=== PATIENT | male | born 1965 | race Hispanic/Latino ===

== ENCOUNTER 2022-12-25 18:05 | Emergency (ER) | payer MEDICAID ==
[~2022-12-25] VITALS: Ht 165.1 cm; Wt 57.2 kg
[2022-12-25] MEDS ORDERED: LORAZEPAM 2 MG/ML 1 ML VIAL IVP ONE (20:00)
[2022-12-25] MEDS ORDERED: LACTATED RINGERS 1000ML 1,000 ML IV ONE (20:00)
[2022-12-25] MEDS ORDERED: METOCLOPRAMIDE 10 MG/2 ML VIAL IVP ONE (20:00)
[2022-12-25] MEDS ORDERED: FAMOTIDINE 20MG VIAL IV ONE (20:00)
[2022-12-25 20:34] LABS: BASOPHILS # (AUTO) 0.05 K/uL (0.00-0.20); BASOPHILS % (AUTO) 0.4 % (0.0-5.0); EOSINOPHILS # (AUTO) 0.18 K/uL (0.00-0.70); EOSINOPHILS % (AUTO) 1.6 % (0.0-8.0); HEMATOCRIT 38.1 % (42-54); IMMATURE GRANULOCYTE ABSOLUTE 0.05 K/uL (0-1); LYMPHOCYTES # (AUTO) 3.2 K/uL (1.0-4.8); LYMPHOCYTES % (AUTO) 27.9 % (21.0-51.0); MEAN CORPUSCULAR HEMOGLOBIN 32.7 pg (27.0-33.0); MEAN CORPUSCULAR HGB CONC 33.6 g/dL (32.0-36.0); MEAN CORPUSCULAR VOLUME 97.2 fL (79-99); MONOCYTES # (AUTO) 0.9 K/uL (0.1-1.0); MONOCYTES % (AUTO) 7.9 % (3.0-13.0); NEUTROPHILS % (AUTO) 61.8 % (40.0-77.0); PLATELET COUNT (AUTO) 252 K/uL (130-400); RED BLOOD CELL COUNT(AUTO) 3.92 MIL/uL (4.50-6.20); RED CELL DISTRIBUTION WIDTH 13.2 % (11.0-15.5); WHITE BLOOD COUNT (AUTO) 11.3 K/uL (4.8-10.8)
[2022-12-25 20:44] LABS: CREATININE 1.1 mg/dL (0.5-1.5); POTASSIUM 4.5 mmol/L (3.5-5.1)
[2022-12-25 20:56] LABS: ALBUMIN 3.3 g/dL (3.5-5.0); BILIRUBIN,TOTAL 0.1 mg/dL (0.2-1.0); TOTAL PROTEIN, SERUM 6.6 g/dL (6.0-8.3)
[2022-12-25 22:48] VITALS: BP 131/88; PULSE 75; RESP 16; O2SAT 100
[2022-12-25] MEDS ORDERED: LACTULOSE 20 GM/30 ML UDCUP PO ONE (23:30)
[2022-12-26] LABS: APPEARANCE,URINE CLEAR (CLEAR); BILIRUBIN,URINE NEGATIVE (NEGATIVE); COLOR,URINE COLORLESS (YELLOW); GLUCOSE, URINE (UA) NEGATIVE (NEGATIVE); KETONES,URINE NEGATIVE (NEGATIVE); LEUKOCYTE ESTERASE ,URINE NEGATIVE Leu/uL (NEGATIVE); NITRATE,URINE NEGATIVE (NEGATIVE); OCCULT BLOOD,URINE NEGATIVE (NEGATIVE); PH,URINE 6.5 (5.0-8.0); PROTEIN,URINE NEGATIVE (NEGATIVE); UROBILINOGEN,URINE 0.2 mg/dL (0.2-1.0)
[2022-12-26 00:05] LABS: AMPHET/METH SCREEN,URINE NEGATIVE (NEGATIVE); BARBITURATE SCREEN, URINE NEGATIVE (NEGATIVE); BENZODIAZEPINES SCREEN,URINE NEGATIVE (NEGATIVE); CANNABINOID SCREEN,URINE POSITIVE (NEGATIVE); COCAINE SCREEN,URINE POSITIVE (NEGATIVE); OPIATE SCREEN,URINE NEGATIVE (NEGATIVE); PHENCYCLIDINE SCREEN,URINE NEGATIVE (NEGATIVE)
[2022-12-26 00:07] LABS: ADD UA MICROSCOPIC NO
== END 2022-12-26 01:41 | disposition home or self-care (01) ==
LOC: EDH 18:05
DX: K59.00 Constipation, unspecified (principal); F41.9 Anxiety disorder, unspecified; J44.9 Chronic obstructive pulmonary disease, unspecified; F17.200 Nicotine dependence, unspecified, uncomplicated; Z86.73 Personal history of transient ischemic attack (TIA), and cerebral infarction without residual deficits
CPT/HCPCS: 99285; 96374; 71045; 96375; 84484; 80053; 80305; 83690; 85025; 81003; 36415; 74021; 93005; J7120; J3490; J2060; J2765

== ENCOUNTER 2023-07-23 11:18 | Inpatient (IN) | payer MEDICAID ==
[2023-07-23] VITALS (30 sets, daily range): BP systolic 101–140; BP diastolic 62–84; PULSE 52–72; RESP 9–24; O2SAT 96–98
[~2023-07-23] VITALS: Ht 162.6 cm; Wt 55.7 kg
[2023-07-23] MEDS: ASPIRIN 325MG TAB PO ONE (11:30)
[2023-07-23] MEDS: 0.9%NACL 1000ML 1,000 ML IV ONE (11:41)
[2023-07-23 11:47] LABS: BASOPHILS # (AUTO) 0.05 K/uL (0.00-0.20); BASOPHILS % (AUTO) 0.5 % (0.0-5.0); EOSINOPHILS # (AUTO) 0.21 K/uL (0.00-0.70); EOSINOPHILS % (AUTO) 2.2 % (0.0-8.0); HEMATOCRIT 43.3 % (42-54); IMMATURE GRANULOCYTE ABSOLUTE 0.03 K/uL (0-1); LYMPHOCYTES # (AUTO) 4.2 K/uL (1.0-4.8); MEAN CORPUSCULAR HEMOGLOBIN 31.6 pg (27.0-33.0); MEAN CORPUSCULAR HGB CONC 33.7 g/dL (32.0-36.0); MEAN CORPUSCULAR VOLUME 93.7 fL (79-99); MONOCYTES # (AUTO) 0.7 K/uL (0.1-1.0); MONOCYTES % (AUTO) 7.8 % (3.0-13.0); NEUTROPHILS # (AUTO) 4.3 K/uL (1.8-7.7); NEUTROPHILS % (AUTO) 45.2 % (40.0-77.0); PLATELET COUNT (AUTO) 195 K/uL (130-400); RED BLOOD CELL COUNT(AUTO) 4.62 MIL/uL (4.50-6.20); RED CELL DISTRIBUTION WIDTH 13.3 % (11.0-15.5); WHITE BLOOD COUNT (AUTO) 9.5 K/uL (4.8-10.8)
[2023-07-23 11:52] LABS: CREATININE 1.1 mg/dL (0.5-1.3); POTASSIUM 4.3 mmol/L (3.5-5.1)
[2023-07-23 11:57] LABS: ALBUMIN 3.8 g/dL (3.5-5.0); BILIRUBIN,TOTAL 0.3 mg/dL (0.2-1.0); MAGNESIUM 2.1 mg/dL (1.80-2.40); TOTAL PROTEIN, SERUM 7.8 g/dL (6.0-8.3)
[2023-07-23] MEDS: HEPARIN 5,000 UNIT VIAL IV PRN (12:21)
[2023-07-23] MEDS: HEPARIN 25,000 UNITS/250ML D5W 250 ML IV SCH (12:29)
[2023-07-23] MEDS ORDERED: LIDOCAINE HCL 400MG/20ML VIAL ONE (14:51)
[2023-07-23] MEDS ORDERED: BIVALIRUDIN 250 MG/VIAL IV ONE (14:52)
[2023-07-23] MEDS ORDERED: HEPARIN 10,000 UNIT/10ML (1,000 UNIT/ML) VIAL ONE (14:52)
[2023-07-23] MEDS ORDERED: IOHEXOL 350 MG/ML 100ML INFUS..BTL IV ONE (14:52)
[2023-07-23] MEDS ORDERED: NITROGLYCERIN 50MG VIAL ONE (14:52)
[2023-07-23] MEDS ORDERED: 0.9% NACL 500ML IV.SOLN 500 ML IV SCH (15:00)
[2023-07-23] MEDS ORDERED: FENTANYL CITRATE PF 50 MCG/1 ML 2ML VIAL ONE (15:16)
[2023-07-23] MEDS ORDERED: MIDAZOLAM HCL 1 MG/ML 2ML VIAL ONE (15:17)
[2023-07-23] MEDS ORDERED: IOHEXOL-350 75 ML VIAL IV ONE (15:35)
[2023-07-23] MEDS ORDERED: NITROGLYCERIN 50MG/D5W 250ML 1 BOT ONE (15:39)
[2023-07-23] MEDS ORDERED: NITROGLYCERIN 4.1 GM SPRAY TL ONE (15:40)
[2023-07-23] MEDS ORDERED: GLUCAGON 1MG KIT 1 MG ML IM PRN (16:30)
[2023-07-23] MEDS ORDERED: NITROGLYCERIN 50MG/D5W 250ML 250 BOT IV SCH (16:30)
[2023-07-23] MEDS: INSULIN HUMULIN R 100 UNIT/ML 3ML SQ SCH ×2 (16:30→20:34)
[2023-07-23] MEDS ORDERED: DEXTROSE 50%-WATER 50 ML DISP.SYRIN IV PRN (16:30)
[2023-07-23] MEDS ORDERED: CLONIDINE HCL 0.1 MG TABLET PO PRN (17:00)
[2023-07-23] MEDS ORDERED: LACTULOSE 20 GM/30 ML UDCUP PO PRN (17:00)
[2023-07-23] MEDS ORDERED: HYDRALAZINE 20MG/ML VIAL IV PRN (17:00)
[2023-07-23] MEDS ORDERED: ONDANSETRON 4MG INJ IVP PRN (17:00)
[2023-07-23] MEDS ORDERED: ACETAMINOPHEN 650 MG SUPPOSITORY RC PRN (17:00)
[2023-07-23] MEDS: 0.9%NACL 1000ML 1,000 ML IV SCH (17:06)
[2023-07-23 17:28] LABS: ABG BASE EXCESS -2.4 mmol/L (-2.0-3.0); ABG HCO3 21.6 mmol/L (21.0-28.0); ABG OXYGEN SATURATION 96.3 % (95.0-99.0); ABG PCO2 35 mmHg (35-48); ABG PH 7.408 (7.35-7.450); PO2, ARTERIAL BG 82.4 mmHg (83.0-108.0); VENT MODE, BG RA (ROOM AIR)
[2023-07-23] MEDS ORDERED: LOSA50TA64 PO (19:27)
[2023-07-23] MEDS ORDERED: ASPI-1026 PO (19:27)
[2023-07-23] MEDS ORDERED: LOVA40TA2 PO (19:29)
[2023-07-23] MEDS: ACETAMINOPHEN 325 MG TAB PO PRN (20:24)
[2023-07-23] MEDS: ATORVASTATIN 40 MG TABLET PO SCH (20:24)
[2023-07-23] MEDS: SIMVASTATIN 20 MG TABLET PO SCH (20:33)
[2023-07-23] MEDS ORDERED: CARVEDILOL 6.25 MG TABLET PO SCH (21:00)
[2023-07-23] MEDS: CARVEDILOL 3.125 MG TABLET PO SCH (22:00)
[2023-07-23] MEDS: LIDOCAINE 5% TOPICAL PATCH TP SCH (22:24)
[2023-07-24] VITALS (92 sets, daily range): BP systolic 83–155; BP diastolic 30–89; PULSE 51–73; RESP 5–33; O2SAT 97–100
[2023-07-24 06:02] LABS: HEMATOCRIT 37.1 % (42-54); MEAN CORPUSCULAR HEMOGLOBIN 32.6 pg (27.0-33.0); MEAN CORPUSCULAR HGB CONC 33.7 g/dL (32.0-36.0); MEAN CORPUSCULAR VOLUME 96.6 fL (79-99); RED BLOOD CELL COUNT(AUTO) 3.84 MIL/uL (4.50-6.20); RED CELL DISTRIBUTION WIDTH 13.2 % (11.0-15.5); WHITE BLOOD COUNT (AUTO) 8.4 K/uL (4.8-10.8)
[2023-07-24 06:14] LABS: INR <= 0.93 (0.85-1.15); PROTHROMBIN TIME 10.9 SEC (9.6-11.6)
[2023-07-24 06:15] LABS: PARTIAL THROMBOPLASTIN TIME 51.5 SEC (26.3-35.5)
[2023-07-24] MEDS: ASPIRIN 81MG CHEW TAB PO SCH ×2 (08:10→08:14)
[2023-07-24] MEDS: LOSARTAN 50 MG TABLET PO SCH (08:14)
[2023-07-24] MEDS: PANTOPRAZOLE 40 MG TAB DR PO SCH (08:14)
[2023-07-24] MEDS ORDERED: ENOXAPARIN SODIUM 40 MG/0.4 ML SYRINGE SQ SCH (09:00)
[2023-07-24] MEDS: CEFAZOLIN SODIUM 2 GM VIAL IVPB SCH (10:00)
[2023-07-24 10:23] LABS: APPEARANCE,URINE CLEAR (CLEAR); BILIRUBIN,URINE NEGATIVE (NEGATIVE); COLOR,URINE LIGHT-YELLOW (YELLOW); GLUCOSE, URINE (UA) NEGATIVE (NEGATIVE); KETONES,URINE 5 mg/dL (NEGATIVE); LEUKOCYTE ESTERASE ,URINE NEGATIVE Leu/uL (NEGATIVE); NITRATE,URINE NEGATIVE (NEGATIVE); OCCULT BLOOD,URINE NEGATIVE (NEGATIVE); PH,URINE 6.5 (5.0-8.0); PROTEIN,URINE NEGATIVE (NEGATIVE); UROBILINOGEN,URINE 0.2 mg/dL (0.2-1.0)
[2023-07-24 10:56] LABS: ADD UA MICROSCOPIC YES
[2023-07-24 11:11] LABS: WBC,URINE 0-1 /HPF (0-1)
[2023-07-24] MEDS: IPRATROPIUM 0.5 MG/2.5 ML INH IH SCH (11:39)
[2023-07-24] MEDS: IPRATROPIUM 0.5 MG/2.5 ML INH IH ONE (11:39)
[2023-07-24] MEDS: NICOTINE 14 MG/ 24 HR PATCH TD SCH (16:20)
[2023-07-24] MEDS: TEMAZEPAM 15 MG CAPSULE PO PRN (20:22)
[2023-07-25] VITALS (76 sets, daily range): BP systolic 84–187; BP diastolic 30–104; PULSE 56–90; RESP 5–26; TEMP 97–98; O2SAT 97–100
[2023-07-25 04:19] LABS: HEMATOCRIT 37.5 % (42-54); MEAN CORPUSCULAR HEMOGLOBIN 31.6 pg (27.0-33.0); MEAN CORPUSCULAR HGB CONC 33.3 g/dL (32.0-36.0); MEAN CORPUSCULAR VOLUME 94.9 fL (79-99); RED BLOOD CELL COUNT(AUTO) 3.95 MIL/uL (4.50-6.20); RED CELL DISTRIBUTION WIDTH 12.9 % (11.0-15.5); WHITE BLOOD COUNT (AUTO) 7.1 K/uL (4.8-10.8)
[2023-07-25 04:27] LABS: CREATININE 0.9 mg/dL (0.5-1.3); POTASSIUM 4.3 mmol/L (3.5-5.1)
[2023-07-25 04:31] LABS: ALBUMIN 2.9 g/dL (3.5-5.0); BILIRUBIN,TOTAL 0.3 mg/dL (0.2-1.0); MAGNESIUM 1.8 mg/dL (1.80-2.40); TOTAL PROTEIN, SERUM 6.2 g/dL (6.0-8.3)
[2023-07-25 04:34] LABS: INR <= 0.93 (0.85-1.15)
[2023-07-25 04:36] LABS: PARTIAL THROMBOPLASTIN TIME 28.5 SEC (26.3-35.5)
[2023-07-25 04:53] LABS: HEMOGLOBIN A1C 5.6 % (4.0-6.0)
[2023-07-25] MEDS ORDERED: CEFAZOLIN SODIUM 1 GM VIAL ONE ×2 (06:03→08:38)
[2023-07-25] MEDS ORDERED: PAPAVERINE HCL 30 MG/ML 2ML VIAL ONE (06:04)
[2023-07-25] MEDS ORDERED: EPINEPHRINE 10 MG in 0.9% NACL 250ML IV PRN ×2 (06:30→09:00)
[2023-07-25] MEDS ORDERED: AMINOCAPROIC ACID 15,000 MG in 0.9% NACL 500ML IV PRN (06:30)
[2023-07-25] MEDS ORDERED: NOREPINEPHRIN 8MG/250ML NS 250 ML IV PRN ×2 (06:30→07:00)
[2023-07-25] MEDS ORDERED: AMINOCAPROIC ACID 5,000MG VIAL 15,000 MG in 0.9% NACL 500ML IV.SOLN 420 ML IV PRN (07:00)
[2023-07-25] MEDS ORDERED: EPINEPHRINE PF 1MG (1:1,000) 10 MG in 0.9% NACL 250ML 240 ML IV PRN (07:00)
[2023-07-25] MEDS ORDERED: NITROGLYCERIN 50MG/D5W 250ML 1 BOT ONE (07:12)
[2023-07-25] MEDS: MAGNESIUM 2GM PREMIX 50ML 50 ML IV PRN ×2 (07:48→23:01)
[2023-07-25] MEDS ORDERED: EPINEPHRINE PF 1MG (1:1,000) 1 MG/ML AMP ONE (07:59)
[2023-07-25] MEDS ORDERED: PROTAMINE SULFATE 10 MG/ML 25ML VIAL IV ONE (07:59)
[2023-07-25] MEDS ORDERED: LIDOCAINE PF 100MG/5ML (2%) SYRINGE 5ML ONE (07:59)
[2023-07-25] MEDS ORDERED: HEPARIN 10,000 UNIT/10ML (1,000 UNIT/ML) VIAL ONE (07:59)
[2023-07-25] MEDS ORDERED: NOREPINEPHRINE BITARTRATE 1 MG/1 ML ML IV ONE (08:00)
[2023-07-25] MEDS ORDERED: PROPOFOL 10 MG/ML 20ML VIAL IV ONE (08:00)
[2023-07-25] MEDS ORDERED: SODIUM BICARB 50MEQ 50ML VIAL 200 ML ONE (08:00)
[2023-07-25] MEDS ORDERED: AMINOCAPROIC ACID 5,000MG VIAL ONE (08:00)
[2023-07-25] MEDS ORDERED: FENTANYL CITRATE PF 50 MCG/1 ML 20ML VIAL IJ ONE (08:00)
[2023-07-25] MEDS ORDERED: MAGNESIUM 2GM PREMIX 50ML 50 ML IV PRN (08:00)
[2023-07-25] MEDS ORDERED: MIDAZOLAM HCL 1 MG/ML 2ML VIAL ONE (08:01)
[2023-07-25] MEDS ORDERED: ROCURONIUM BROMIDE 10MG/1ML 5ML VL ONE (08:01)
[2023-07-25] MEDS ORDERED: KETAMINE 50MG/ML SYRINGE 50 MG/ML DISP.SYRIN ONE (08:03)
[2023-07-25] MEDS: CEFAZOLIN SODIUM 2 GM VIAL IVPB ONE (08:30)
[2023-07-25 08:38] LABS: ABG BASE EXCESS -4.3 mmol/L (-2.0-3.0); ABG HCO3 20.5 mmol/L (21.0-28.0); ABG OXYGEN SATURATION 99.5 % (95.0-99.0); ABG PCO2 37 mmHg (35-48); ABG PH 7.366 (7.35-7.450); CARBON MONOXIDE 0.3; DEVICE COMMENT 1; HHb 0.5; PO2, ARTERIAL BG 490.6 mmHg (83.0-108.0)
[2023-07-25] MEDS ORDERED: SODIUM BICARB 50MEQ 50ML VIAL 50 ML ONE (08:43)
[2023-07-25] MEDS ORDERED: MORPHINE 2 MG SYG IV PRN ×2 (09:00)
[2023-07-25] MEDS ORDERED: NITROGLYCERIN 50MG/D5W 250ML 250 BOT IV SCH (09:00)
[2023-07-25] MEDS ORDERED: ACETAMINOPHEN 325 MG TAB PO PRN (09:00)
[2023-07-25] MEDS ORDERED: 0.9%NACL 10ML VIAL IVP PRN (09:00)
[2023-07-25] MEDS ORDERED: NS IV PRN (09:00)
[2023-07-25] MEDS ORDERED: AMINOCAPROIC ACID 5,000MG VIAL 15,000 MG in 0.9% NACL 250ML 250 ML IV SCH (09:00)
[2023-07-25] MEDS ORDERED: INSULIN REGULAR IV SCH (09:00)
[2023-07-25] MEDS ORDERED: 0.9% NACL 500ML IV.SOLN 500 ML IV SCH (09:00)
[2023-07-25] MEDS ORDERED: DEXTROSE 50%-WATER 50 ML DISP.SYRIN IV PRN (09:00)
[2023-07-25] MEDS ORDERED: NICOTINE 14 MG/ 24 HR PATCH TD SCH (09:00)
[2023-07-25] MEDS ORDERED: POTASSIUM PHOS 15 mMOL+NS250ML 250 ML IV PRN (09:00)
[2023-07-25] MEDS ORDERED: PROPOFOL 1000 MG/100 ML 100 ML IV PRN (09:00)
[2023-07-25] MEDS ORDERED: GLUCAGON 1MG KIT 1 MG ML IM PRN (09:00)
[2023-07-25] MEDS ORDERED: NOREPINEPHRIN 8 MG/250 ML IV PRN (09:00)
[2023-07-25] MEDS ORDERED: [UNRECOGNIZED DRUG - OTHER] IV SCH (09:00)
[2023-07-25] MEDS ORDERED: ACETAMINOPHEN 650 MG SUPPOSITORY RC PRN (09:00)
[2023-07-25] MEDS ORDERED: TRAMADOL HCL 50 MG TABLET PO PRN (09:00)
[2023-07-25] MEDS ORDERED: MAGNESIUM HYDROXIDE 30 ML/UDCUP PO PRN (09:00)
[2023-07-25 09:24] LABS: ABG BASE EXCESS -2.6 mmol/L (-2.0-3.0); ABG HCO3 23.4 mmol/L (21.0-28.0); ABG OXYGEN SATURATION 99.7 % (95.0-99.0); ABG PCO2 45 mmHg (35-48); ABG PH 7.332 (7.35-7.450); CARBON MONOXIDE 0.3; DEVICE COMMENT 2; HHb 0.3; PO2, ARTERIAL BG 476.5 mmHg (83.0-108.0)
[2023-07-25] MEDS ORDERED: AMIODARONE 150MG VIAL ONE (09:55)
[2023-07-25 10:42] LABS: ABG BASE EXCESS -7.2 mmol/L (-2.0-3.0); ABG HCO3 20.8 mmol/L (21.0-28.0); ABG OXYGEN SATURATION 99.2 % (95.0-99.0); ABG PCO2 54 mmHg (35-48); ABG PH 7.206 (7.35-7.450); CARBON MONOXIDE 0.2; DEVICE COMMENT 3; HHb 0.8; PO2, ARTERIAL BG 401.8 mmHg (83.0-108.0)
[2023-07-25] MEDS ORDERED: SODIUM BICARB 50MEQ 50ML VIAL 150 ML ONE (10:47)
[2023-07-25 11:18] LABS: ABG BASE EXCESS 1.6 mmol/L (-2.0-3.0); ABG HCO3 28.5 mmol/L (21.0-28.0); ABG OXYGEN SATURATION 99.3 % (95.0-99.0); ABG PCO2 55 mmHg (35-48); ABG PH 7.329 (7.35-7.450); CARBON MONOXIDE 0.3; HHb 0.7; PO2, ARTERIAL BG 417.4 mmHg (83.0-108.0); VENT MODE, BG SIMV, PS10 (ROOM AIR)
[2023-07-25] MEDS: ASPIRIN 81MG CHEW TAB NG ONE (11:23)
[2023-07-25] MEDS: POTASSIUM CHLORIDE 20MEQ/100ML 100 ML IV PRN (11:24)
[2023-07-25] MEDS: 0.9%NACL 1000ML 1,000 ML IV SCH (11:25)
[2023-07-25] MEDS: FAMOTIDINE 20MG VIAL IV SCH (11:25)
[2023-07-25 11:40] LABS: HEMATOCRIT 32.8 % (42-54); MEAN CORPUSCULAR HEMOGLOBIN 31.7 pg (27.0-33.0); MEAN CORPUSCULAR HGB CONC 34.1 g/dL (32.0-36.0); MEAN CORPUSCULAR VOLUME 92.9 fL (79-99); RED BLOOD CELL COUNT(AUTO) 3.53 MIL/uL (4.50-6.20); RED CELL DISTRIBUTION WIDTH 13.1 % (11.0-15.5); WHITE BLOOD COUNT (AUTO) 27.2 K/uL (4.8-10.8)
[2023-07-25 11:53] LABS: MAGNESIUM 2.1 mg/dL (1.80-2.40); PHOSPHORUS 7.3 mg/dL (2.5-4.9)
[2023-07-25 12:10] LABS: ABG BASE EXCESS -1.7 mmol/L (-2.0-3.0); ABG HCO3 23.3 mmol/L (21.0-28.0); ABG OXYGEN SATURATION 99.6 % (95.0-99.0); ABG PCO2 40 mmHg (35-48); CARBON MONOXIDE 0.4; HHb 0.4; VENT MODE, BG SIMV PS 100 (ROOM AIR)
[2023-07-25] MEDS: SODIUM BICARB 50MEQ 50ML VIAL IV PRN (12:12)
[2023-07-25 12:39] LABS: INR 1.05 (0.85-1.15); PROTHROMBIN TIME 12.3 SEC (9.6-11.6)
[2023-07-25 12:41] LABS: PARTIAL THROMBOPLASTIN TIME 24.4 SEC (26.3-35.5)
[2023-07-25 13:14] LABS: ABG BASE EXCESS -1.9 mmol/L (-2.0-3.0); ABG HCO3 21.9 mmol/L (21.0-28.0); ABG PCO2 34 mmHg (35-48); ABG PH 7.425 (7.35-7.450); CARBON MONOXIDE 0.3; PO2, ARTERIAL BG 128.6 mmHg (83.0-108.0); VENT MODE, BG SIMV, PS10 (ROOM AIR)
[2023-07-25] MEDS: ALBUMIN (HUMAN) 5% 250 ML IV PRN (13:18)
[2023-07-25] MEDS: CALCIUM GLUC 1GM 1 GM in 0.9%NACL 50ML 50 ML IV PRN (13:22)
[2023-07-25 14:10] LABS: ABG BASE EXCESS -0.1 mmol/L (-2.0-3.0); ABG HCO3 23.9 mmol/L (21.0-28.0); ABG OXYGEN SATURATION 98.1 % (95.0-99.0); ABG PCO2 37 mmHg (35-48); ABG PH 7.432 (7.35-7.450); CARBON MONOXIDE 0.3; HHb 1.9; PO2, ARTERIAL BG 142.6 mmHg (83.0-108.0); VENT MODE, BG SIMV, PS10 (ROOM AIR)
[2023-07-25] MEDS: CEFAZOLIN SODIUM 2 GM VIAL IVPB SCH (14:37)
[2023-07-25 15:03] LABS: ABG BASE EXCESS -1.1 mmol/L (-2.0-3.0); ABG HCO3 22.4 mmol/L (21.0-28.0); ABG OXYGEN SATURATION 98.3 % (95.0-99.0); ABG PCO2 33 mmHg (35-48); CARBON MONOXIDE 0.3; HHb 1.7; PO2, ARTERIAL BG 145.6 mmHg (83.0-108.0); VENT MODE, BG CPAP 5,PS10 (ROOM AIR)
[2023-07-25] MEDS: TRAMADOL HCL 50 MG TABLET PO PRN (15:27)
[2023-07-25 16:10] LABS: ABG BASE EXCESS 1.4 mmol/L (-2.0-3.0); ABG HCO3 25.2 mmol/L (21.0-28.0); ABG OXYGEN SATURATION 98.1 % (95.0-99.0); ABG PCO2 37 mmHg (35-48); ABG PH 7.455 (7.35-7.450); CARBON MONOXIDE 0.3; HHb 1.9; VENT MODE, BG CAFM .40 (ROOM AIR)
[2023-07-25] MEDS: ONDANSETRON 4MG INJ IV PRN (17:03)
[2023-07-25 17:47] LABS: CREATININE 1.4 mg/dL (0.5-1.3); POTASSIUM 3.7 mmol/L (3.5-5.1)
[2023-07-25] MEDS: DOCUSATE SODIUM 100 MG CAP PO ONE (20:45)
[2023-07-25 22:39] LABS: MAGNESIUM 1.6 mg/dL (1.80-2.40); POTASSIUM 4.2 mmol/L (3.5-5.1)
[2023-07-26] VITALS (91 sets, daily range): BP systolic 99–190; BP diastolic 42–96; PULSE 48–79; RESP 5–94; O2SAT 97–99
[2023-07-26] MEDS: ACETAMINOPHEN 325 MG TAB PO PRN (01:37)
[2023-07-26 05:01] LABS: MEAN CORPUSCULAR HEMOGLOBIN 31.5 pg (27.0-33.0); MEAN CORPUSCULAR HGB CONC 33.6 g/dL (32.0-36.0); RED BLOOD CELL COUNT(AUTO) 2.98 MIL/uL (4.50-6.20); RED CELL DISTRIBUTION WIDTH 13.3 % (11.0-15.5)
[2023-07-26 05:10] LABS: INR 0.95 (0.85-1.15); PROTHROMBIN TIME 11.3 SEC (9.6-11.6)
[2023-07-26 05:12] LABS: CREATININE 1.1 mg/dL (0.5-1.3); MAGNESIUM 1.9 mg/dL (1.80-2.40); PARTIAL THROMBOPLASTIN TIME 25.6 SEC (26.3-35.5); PHOSPHORUS 4.2 mg/dL (2.5-4.9); POTASSIUM 4.4 mmol/L (3.5-5.1)
[2023-07-26] MEDS: FUROSEMIDE 20MG VIAL IV SCH (08:28)
[2023-07-26] MEDS: ZOSYN 3.375GM+NS 50ML 50 ML ONE (11:13)
[2023-07-26] MEDS: METOPROLOL TARTRATE 25 MG TAB ONE (11:49)
[2023-07-26] MEDS: DEXMEDETOMIDINE 400MCG/NS100ML IV ONE (18:54)
[2023-07-27] VITALS (63 sets, daily range): BP systolic 103–191; BP diastolic 47–89; PULSE 68–85; RESP 14–39; O2SAT 92–97
[2023-07-27 04:06] LABS: HEMATOCRIT 28.7 % (42-54); MEAN CORPUSCULAR HEMOGLOBIN 32.4 pg (27.0-33.0); MEAN CORPUSCULAR HGB CONC 33.4 g/dL (32.0-36.0); PLATELET COUNT (AUTO) 64 K/uL (130-400); RED BLOOD CELL COUNT(AUTO) 2.96 MIL/uL (4.50-6.20); RED CELL DISTRIBUTION WIDTH 13.2 % (11.0-15.5); WHITE BLOOD COUNT (AUTO) 9.2 K/uL (4.8-10.8)
[2023-07-27 04:15] LABS: CREATININE 1.1 mg/dL (0.5-1.3); POTASSIUM 4.4 mmol/L (3.5-5.1)
[2023-07-27] MEDS: FUROSEMIDE 20 MG TABLET PO SCH (08:20)
[2023-07-27] MEDS: METOPROLOL TARTRATE 25 MG TAB PO SCH (08:21)
[2023-07-27] MEDS: FAMOTIDINE 20MG TAB PO SCH (21:19)
[2023-07-28] VITALS (40 sets, daily range): BP systolic 84–166; BP diastolic 50–90; PULSE 72–99; RESP 12–44; TEMP 97.9; O2SAT 95–97
[2023-07-28 05:32] LABS: HEMATOCRIT 27.9 % (42-54); MEAN CORPUSCULAR HEMOGLOBIN 31.3 pg (27.0-33.0); MEAN CORPUSCULAR HGB CONC 33.3 g/dL (32.0-36.0); MEAN CORPUSCULAR VOLUME 93.9 fL (79-99); RED BLOOD CELL COUNT(AUTO) 2.97 MIL/uL (4.50-6.20); RED CELL DISTRIBUTION WIDTH 12.9 % (11.0-15.5); WHITE BLOOD COUNT (AUTO) 9.5 K/uL (4.8-10.8)
[2023-07-28 05:49] LABS: CREATININE 0.9 mg/dL (0.5-1.3); POTASSIUM 4.1 mmol/L (3.5-5.1)
[2023-07-28] MEDS: ENOXAPARIN SODIUM 30 MG/0.3 ML SQ SCH (08:23)
[2023-07-28] MEDS: FUROSEMIDE 20MG VIAL IV SCH ×2 (11:14→12:26)
[2023-07-28] MEDS: DOCUSATE SODIUM 100 MG CAP PO SCH (12:27)
[2023-07-28] MEDS: POLYETHYLENE GLYCOL 3350 17 GM POWD.PACK PO SCH (12:27)
[2023-07-28] MEDS: METOPROLOL TARTRATE 25 MG TAB PO SCH (20:05)
[2023-07-28] MEDS: NICOTINE 14 MG/ 24 HR PATCH TD SCH (21:26)
[2023-07-29] VITALS (19 sets, daily range): BP systolic 84–111; BP diastolic 55–71; PULSE 75–94; RESP 14–41; O2SAT 94–96
[2023-07-29 04:09] LABS: HEMATOCRIT 29.7 % (42-54); RED BLOOD CELL COUNT(AUTO) 3.16 MIL/uL (4.50-6.20); RED CELL DISTRIBUTION WIDTH 12.9 % (11.0-15.5); WHITE BLOOD COUNT (AUTO) 9.8 K/uL (4.8-10.8)
[2023-07-29 04:29] LABS: POTASSIUM 3.9 mmol/L (3.5-5.1)
[2023-07-29] MEDS ORDERED: FUROSEMIDE 20 MG TABLET PO SCH (09:00)
[2023-07-29] MEDS: LACTULOSE 20 GM/30 ML UDCUP PO ONE (11:17)
[2023-07-29] MEDS ORDERED: LACTULOSE 20 GM/30 ML UDCUP PO PRN (11:30)
[2023-07-30 03:46] VITALS: BP 96/62; PULSE 78; RESP 18
[2023-07-30 03:47] LABS: HEMATOCRIT 30.3 % (42-54); MEAN CORPUSCULAR HEMOGLOBIN 31.5 pg (27.0-33.0); MEAN CORPUSCULAR VOLUME 92.7 fL (79-99); RED BLOOD CELL COUNT(AUTO) 3.27 MIL/uL (4.50-6.20); RED CELL DISTRIBUTION WIDTH 13.1 % (11.0-15.5); WHITE BLOOD COUNT (AUTO) 8.3 K/uL (4.8-10.8)
[2023-07-30 04:01] LABS: ALBUMIN 2.5 g/dL (3.5-5.0); POTASSIUM 3.3 mmol/L (3.5-5.1)
[2023-07-30] MEDS ORDERED: POTASSIUM CHLORIDE 10% ELIXIR 20 MEQ/15 ML UDCUP PO PRN (06:00)
[2023-07-30] MEDS ORDERED: POTASSIUM CHLORIDE 20MEQ/100ML 100 ML IV PRN (06:00)
[2023-07-30] MEDS: KCL 20 MEQ ERTAB PO PRN (06:05)
[2023-07-30 06:30] VITALS: PULSE 93; RESP 18
[2023-07-30 07:22] VITALS: BP 107/70; PULSE 87; RESP 18
[2023-07-30 11:12] VITALS: PULSE 93; RESP 18
[2023-07-30 11:28] VITALS: BP 103/71; PULSE 92; RESP 18
[2023-07-30 15:55] VITALS: BP 102/62; PULSE 88; RESP 18
[2023-07-30] MEDS ORDERED: ASPI-1005 PO (16:53)
[2023-07-30] MEDS ORDERED: FURO20TA6 PO (16:53)
[2023-07-30] MEDS ORDERED: CLOP-31 PO (16:53)
[2023-07-30] MEDS ORDERED: LOSA50TA64 PO (16:53)
[2023-07-30] MEDS ORDERED: METO25 PO (16:53)
[2023-07-30] MEDS: MIDODRINE HCL 5 MG TABLET PO SCH (17:04)
== END 2023-07-30 18:08 | disposition home or self-care (01) | DRG 165 ==
LOC: EDH 11:18 → EDHIP 16:04 → 2BH 17:01 → 2CV 07-25 08:21 → 2CH 07-27 17:22 → 2AH 07-29 13:00
PROVIDERS: ADMIT Internal Medicine Pulmonary Disease; ATTEND Internal Medicine Pulmonary Disease
PROC: 4A023N7 Measurement of Cardiac Sampling and Pressure, Left Heart, Percutaneous Approach (ICD-10-PCS; 2023-07-23)
PROC: B2111ZZ Fluoroscopy of Multiple Coronary Arteries using Low Osmolar Contrast (ICD-10-PCS; 2023-07-23)
PROC: B2151ZZ Fluoroscopy of Left Heart using Low Osmolar Contrast (ICD-10-PCS; 2023-07-23)
PROC: B24BZZ4 Ultrasonography of Heart with Aorta, Transesophageal (ICD-10-PCS; 2023-07-25)
PROC: 0PS004Z Reposition Sternum with Internal Fixation Device, Open Approach (ICD-10-PCS; 2023-07-25)
PROC: 02100Z9 Bypass Coronary Artery, One Artery from Left Internal Mammary, Open Approach (ICD-10-PCS; principal; 2023-07-25 07:30)
PROC: 5A02210 Assistance with Cardiac Output using Balloon Pump, Continuous (ICD-10-PCS; 2023-07-25 07:30)
PROC: 021109W Bypass Coronary Artery, Two Arteries from Aorta with Autologous Venous Tissue, Open Approach (ICD-10-PCS; 2023-07-25 07:30)
PROC: 06BQ4ZZ Excision of Left Saphenous Vein, Percutaneous Endoscopic Approach (ICD-10-PCS; 2023-07-25 07:30)
PROC: 30233R1 Transfusion of Nonautologous Platelets into Peripheral Vein, Percutaneous Approach (ICD-10-PCS; 2023-07-27)
DX: I21.4 Non-ST elevation (NSTEMI) myocardial infarction (principal); I11.0 Hypertensive heart disease with heart failure; I50.30 Unspecified diastolic (congestive) heart failure; D69.59 Other secondary thrombocytopenia; I25.110 Atherosclerotic heart disease of native coronary artery with unstable angina pectoris; T81.11XA Postprocedural cardiogenic shock, initial encounter; J95.1 Acute pulmonary insufficiency following thoracic surgery; E11.51 Type 2 diabetes mellitus with diabetic peripheral angiopathy without gangrene; E11.65 Type 2 diabetes mellitus with hyperglycemia; D62 Acute posthemorrhagic anemia; E78.00 Pure hypercholesterolemia, unspecified; F12.10 Cannabis abuse, uncomplicated; F17.210 Nicotine dependence, cigarettes, uncomplicated; J44.9 Chronic obstructive pulmonary disease, unspecified; Z79.899 Other long term (current) drug therapy; Z82.3 Family history of stroke; Z86.73 Personal history of transient ischemic attack (TIA), and cerebral infarction without residual deficits; Z82.49 Family history of ischemic heart disease and other diseases of the circulatory system; Z91.199 Patient's noncompliance with other medical treatment and regimen due to unspecified reason; Z95.1 Presence of aortocoronary bypass graft; Z95.5 Presence of coronary angioplasty implant and graft
CPT/HCPCS: 36415; 36430; 36600; 71045; 80048; 80053; 80061; 81001; 82040; 82330; 82435; 82803; 82947; 82948; 83036; 83605; 83735; 83880; 84100; 84132; 84295; 84484; 85018; 85025; 85027; 85347; 85610; 85730; 86850; 86900; 86901; 86923; 93005; 93308; 93312; 93318; 93458; 93880; 93925; 94002; 94010; 94150; 94640; 94664; 99156; 99157; A7048; C1894; G0378; J0171; J0282; J0583; J0612; J0690; J1644; J1650; J1815; J1940; J2001; J2250; J2405; J2440; J2543; J2704; J2720; J3010; J3475; J3480; J3490; J7030; J7040; J7050; P9034; P9045; Q9967; A4315; A4351; A4452; A4510; A4600; A4649; A4930; A6204; A6219; C1713; C1769; C1776; C1887; G0168